=== PATIENT | male | born 1990 | race Caucasian/White ===

== ENCOUNTER 2018-07-17 14:05 | Emergency (ER) | payer BC ==
[~2018-07-17] VITALS: Ht 167.6 cm; Wt 90.7 kg
[2018-07-17 14:21] VITALS: BP 166/92
[2018-07-17] MEDS ORDERED: PROM25TA10 PO (14:46)
[2018-07-17] MEDS ORDERED: DIPH1TAB PO (14:46)
[2018-07-17] MEDS ORDERED: AZIT250T PO (14:46)
--- NOTE | 2018-07-17 14:47 | PHYS DOC ---
Past History Past Medical History: No Pertinent History Past Surgical History: No Surgical History Alcohol Use: None Drug Use: None Adult General Chief Complaint Chief Complaint: NAUSEA/VOMITING/DIARRHEA HPI HPI Patient is a 27-year-old male who presents with complaint of several week history of productive cough worse in the mornings. Patient states that over the last few days however he has had some nausea with vomiting and diarrhea. Patient states that he thinks that he has also been running a fever over the last couple of days but has not checked his temperature. He denies any abdominal pain. Patient states that nothing seems to improve his symptoms. Review of Systems Review of Systems Constitutional: Positive subjective fever and chills [] HENT: Positive congestion and sore throat [] Respiratory: Complains of productive cough without shortness of breath [] GI: Denies abdominal pain. Complains of nausea with vomiting and diarrhea. [] Neurologic: Denies headache, focal weakness or sensory changes [] Allergies Allergies Allergies Coded Allergies Type Severity Reaction Last Updated Verified No Known Drug Allergies 07/17/18 No Physical Exam Physical Exam Constitutional: Well developed, well nourished, no acute distress, non-toxic appearance. [] HENT: Normocephalic, atraumatic, bilateral external ears normal, oropharynx moist, no oral exudates, nose normal. [] Neck: Normal range of motion, no tenderness, supple, no stridor. [] Cardiovascular:Heart rate regular rhythm [] Lungs & Thorax: Bilateral breath sounds clear to auscultation [] Abdomen: Bowel sounds normal, soft, no tenderness. [] Neurologic: Alert and oriented X 3, normal motor function, normal sensory function, no focal deficits noted. [] Current Patient Data Vital Signs Vital Signs Date Time Temp Pulse Resp B/P (MAP) Pulse Ox O2 Delivery O2 Flow Rate FiO2 07/17/18 14:21 97.8 86 16 98 Room Air EKG EKG [] Radiology/Procedures Radiology/Procedures [] Course & Med Decision Making Course & Med Decision Making Pertinent Labs and Imaging studies reviewed. (See chart for details) [] Dragon Disclaimer Dragon Disclaimer This electronic medical record was generated, in whole or in part, using a voice recognition dictation system. Departure Departure: Impression: Primary Impression: Acute bronchitis Additional Impression: Gastroenteritis Disposition: 01 HOME, SELF-CARE Condition: STABLE Referrals: PCP,NO (PCP) Patient Instructions: Acute Bronchitis, Viral Gastroenteritis Scripts Diphenoxylate Hcl/Atropine (LOMOTIL TABLET) 1 Each Tablet 1 TAB PO TID PRN for DIARRHEA, #15 TAB Prov: TIFFANIE TOTH Jr. DO 07/17/18 Promethazine Hcl (PROMETHAZINE HCL) 25 Mg Tablet 1 TAB PO PRN Q6HRS PRN for NAUSEA/VOMITING, #12 TAB Prov: TIFFANIE TOTH Jr. DO 07/17/18 Azithromycin (ZITHROMAX) 250 Mg Tablet 1 PKG PO UD for infection, #6 TAB Prov: TIFFANIE TOTH Jr. DO 07/17/18 Problem Qualifiers Primary Impression: Acute bronchitis Bronchitis organism: unspecified organism Qualified Codes: J20.9 - Acute bronchitis, unspecified TIFFANIE TOTH Jr. DO Jul 17, 2018 14:47
--- NOTE | 2018-07-17 15:00 | RAD ---
PA and lateral chest radiograph. History: Cough, nausea, vomiting. Comparison: None. Findings: Cardiomediastinal silhouette is within normal limits for size. Bilateral lung mullen appear clear without evidence of infiltrate, effusion, or pneumothorax. Impression: 1. No acute cardiopulmonary process. Electronically signed by: Chip Walker MD (07/17/2018 2:56 PM) [place] [id number]
== END 2018-07-17 14:52 | disposition home or self-care (01) ==
LOC: ER 14:05
DX: K52.9 Noninfective gastroenteritis and colitis, unspecified (principal); J20.9 Acute bronchitis, unspecified
CPT/HCPCS: 71046; 99284